=== PATIENT | male | born 1990 | race Caucasian/White ===

== ENCOUNTER 2017-07-26 16:23 | Emergency (ER) | payer MEDICAID, OTHER ==
[~2017-07-26] VITALS: Ht 180.3 cm; Wt 80.0 kg
[~2017-07-26 16:23] MED LIST: CLIN-80 PO; IBUP-1984 PO; NO HOME MEDS
[2017-07-26] MEDS ORDERED: ACET1TAB12 PO (16:31)
[2017-07-26] MEDS ORDERED: CLIN-80 PO (16:31)
[2017-07-26] MEDS ORDERED: IBUP-1984 PO (16:31)
[2017-07-26 16:47] VITALS: BP 110/74
== END 2017-07-26 16:51 | disposition home or self-care (01) ==
LOC: ER 16:24
DX: K08.89 Other specified disorders of teeth and supporting structures (principal); F17.200 Nicotine dependence, unspecified, uncomplicated; F12.10 Cannabis abuse, uncomplicated; Z88.1 Allergy status to other antibiotic agents; Z79.899 Other long term (current) drug therapy
CPT/HCPCS: 99283

== ENCOUNTER 2017-08-30 10:22 | Emergency (ER) | payer OTHER ==
[~2017-08-30] VITALS: Ht 180.3 cm; Wt 72.8 kg
[~2017-08-30 10:22] MED LIST changes: +ACET1TAB12 PO
[2017-08-30 10:29] VITALS: BP 130/67
[2017-08-30] MEDS ORDERED: NAPR-996 PO (11:12)
[2017-08-30] MEDS ORDERED: CLIN150C2 PO (11:12)
== END 2017-08-30 11:22 | disposition home or self-care (01) ==
LOC: ER 10:22
DX: K02.9 Dental caries, unspecified (principal); R22.0 Localized swelling, mass and lump, head; F12.10 Cannabis abuse, uncomplicated; Z88.1 Allergy status to other antibiotic agents
CPT/HCPCS: 99283

== ENCOUNTER 2019-12-25 12:25 | Emergency (ER) | payer MEDICAID ==
[~2019-12-25] VITALS: Ht 177.8 cm; Wt 72.7 kg
[~2019-12-25 12:25] MED LIST changes: -CLIN-80 PO; +CLIN-97 PO; +NAPR-996 PO
[2019-12-25 13:04] VITALS: BP 108/64
[2019-12-25] MEDS ORDERED: CIP750T PO (14:27)
[2019-12-25] MEDS ORDERED: CIPR10DR EACH EAR (14:27)
== END 2019-12-25 15:06 | disposition home or self-care (01) ==
LOC: ER 12:25
DX: H60.503 Unspecified acute noninfective otitis externa, bilateral (principal); F17.200 Nicotine dependence, unspecified, uncomplicated; F12.90 Cannabis use, unspecified, uncomplicated; Z72.89 Other problems related to lifestyle; Z88.1 Allergy status to other antibiotic agents; Z79.2 Long term (current) use of antibiotics; Z79.899 Other long term (current) drug therapy
CPT/HCPCS: 99283

== ENCOUNTER 2021-01-04 13:30 | Emergency (ER) | payer MEDICAID ==
[~2021-01-04] VITALS: Ht 177.8 cm; Wt 88.0 kg
[2021-01-04 13:54] VITALS: BP 117/70
[2021-01-04] MEDS ORDERED: ALB0.5UD IH (15:30)
[2021-01-04] MEDS ORDERED: ALBU8.5H8 IH (15:43)
--- NOTE | 2021-01-04 15:45 | NUR ---
pt seen and assessed by provider
== END 2021-01-04 15:45 | disposition home or self-care (01) ==
LOC: ER 13:33
DX: R05 Cough (principal); Z20.822 Contact with and (suspected) exposure to COVID-19; F17.210 Nicotine dependence, cigarettes, uncomplicated; R06.02 Shortness of breath; F12.90 Cannabis use, unspecified, uncomplicated; Z72.89 Other problems related to lifestyle; Z88.1 Allergy status to other antibiotic agents; Z79.2 Long term (current) use of antibiotics; Z79.899 Other long term (current) drug therapy
CPT/HCPCS: 87635; 99283; C9803

== ENCOUNTER 2021-08-12 15:21 | Emergency (ER) | payer MEDICAID ==
[~2021-08-12] VITALS: Ht 177.8 cm; Wt 88.3 kg
[~2021-08-12 15:21] MED LIST changes: +ALBU8.5H17 IH
[2021-08-12 15:26] VITALS: BP 143/89
[2021-08-12] MEDS ORDERED: ketorolac trometh inj. 60 MG/2 ML VIAL IM ONE (16:30)
== END 2021-08-12 16:51 | disposition home or self-care (01) ==
LOC: ER 15:22
DX: M75.22 Bicipital tendinitis, left shoulder (principal); F12.10 Cannabis abuse, uncomplicated; F31.9 Bipolar disorder, unspecified; Z88.1 Allergy status to other antibiotic agents; Z79.899 Other long term (current) drug therapy
CPT/HCPCS: 99283

== ENCOUNTER 2021-09-12 12:07 | Emergency (ER) | payer MEDICAID ==
[~2021-09-12] VITALS: Ht 177.8 cm; Wt 86.4 kg
[2021-09-12 12:21] VITALS: BP 116/81
[2021-09-12] MEDS ORDERED: ketorolac tromethamine 15mg/ml inj. IM ONE (13:50)
[2021-09-12] MEDS ORDERED: CYCL-1 PO (14:08)
== END 2021-09-12 15:01 | disposition home or self-care (01) ==
LOC: ER 12:10
DX: S39.012A Strain of muscle, fascia and tendon of lower back, initial encounter (principal); M54.89 Other dorsalgia; F41.9 Anxiety disorder, unspecified; F31.9 Bipolar disorder, unspecified; F12.90 Cannabis use, unspecified, uncomplicated; Z72.89 Other problems related to lifestyle; Z88.1 Allergy status to other antibiotic agents; Z79.2 Long term (current) use of antibiotics; Z79.899 Other long term (current) drug therapy; X58.XXXA Exposure to other specified factors, initial encounter; Y93.89 Activity, other specified; Y92.89 Other specified places as the place of occurrence of the external cause; Y99.8 Other external cause status
CPT/HCPCS: 96372; 99283; J1885

== ENCOUNTER 2023-06-30 13:47 | Emergency (ER) | payer MEDICAID ==
[~2023-06-30] VITALS: Ht 180.3 cm; Wt 90.9 kg
[~2023-06-30 13:47] MED LIST changes: +CYCL-1 PO
[2023-06-30] MEDS ORDERED: LIDOcaine 1% 30ml preserv. free vial SQ STA (14:35)
[2023-06-30] MEDS ORDERED: tetanus & diphtheria toxoid (Td) vaccine 0.5ml IMVAC ONE (14:35)
[2023-06-30] MEDS ORDERED: TETanus/Pertussis (Acell)/Diphther VAC/PF (Tdap-Adult) 0.5ml syringe IMVAC ONE (14:45)
[2023-06-30] MEDS ORDERED: DOXY200T8 PO (16:09)
[2023-06-30 16:33] VITALS: BP 124/93; PULSE 87; RESP 18; TEMP 98.2; O2SAT 99
== END 2023-06-30 16:36 | disposition home or self-care (01) ==
LOC: ER 13:48
DX: S61.211A Laceration without foreign body of left index finger without damage to nail, initial encounter (principal); F31.9 Bipolar disorder, unspecified; F12.10 Cannabis abuse, uncomplicated; Z88.1 Allergy status to other antibiotic agents; Z79.899 Other long term (current) drug therapy
CPT/HCPCS: 73130; 90471; 90715; 99283; A6449